=== PATIENT | female | born 1940 | race Caucasian/White ===

== ENCOUNTER 2017-03-18 07:50 | Inpatient (IN) ==
[2017-03-18] MEDS ORDERED: IOPAMIDOL 100 ML BOTTLE IV ONE (07:51)
[2017-03-18] MEDS ORDERED: 0.9 % SODIUM CHLORIDE 1,000 ML IV SCH (08:00)
--- NOTE | 2017-03-18 08:01 | Emergency Department Note ---
Weakness HPI - General Chief complaint: Weakness Stated complaint: global weakness Time Seen by Provider: 03/18/17 07:56 Source: patient, family, EMS Mode of arrival: EMS Limitations: altered mental status, physical limitation - History of Present Illness HPI Narrative: 76-year-old female comes in after 3 day history of difficulty using her arms and legs. Her reports that she does not want to get out of her bed or stand. Denies fever nausea vomiting diarrhea shortness of breath. Last bowel movement was 2 nights ago. She is declined to take much oral intake since then. All this history is from her that she is not able to give me any meaningful history or be entirely cooperative for physical exam-he says she has significant underlying dementia Did not get a flu shot this year - Related Data Home Medications Medication Instructions Recorded Confirmed aspirin 81 mg tablet,delayed 81 mg PO QDAY tab 11/05/14 07/11/16 release Previous Rx's Medication Instructions Recorded albuterol sulfate HFA 90 180 mcg INHALATION TID #8.5 g 02/02/15 mcg/actuation aerosol inhaler levothyroxine 50 mcg tablet 50 mcg PO QDAY #90 tab 01/02/17 Allergies Allergy/AdvReac Type Severity Reaction Status Date / Time codeine Allergy Intermediate Hallucinati Verified 03/18/17 07:56 ng Review of Systems Limitations: ROS unobtainable due to patients medical condition Past Medical History - Past Medical History Source: old records reviewed, obtained from family Medical history: Reports: COPD, dementia, hypertension, osteoporosis, thyroid disease, other (Small bowel obstruction, peripheral vascular disease) Surgical history ED: Reports: appendectomy - Social History smoking status: Current every day smoker Physical Exam Cachectic, chronically ill-appearing female no acute distress. In fact she is smiling while lying on the bed looking around. Normocephalic atraumatic. Conjunctive bilaterally injected with some erythema on the blepharal bilaterally , some viscous drainage bilateral eyes more consistent with irritation than a true conjunctivitis. No nasal congestion or discharge. Oropharynx pink and moist. Bottom two incisors missing. Neck is supple without lymphadenopathy. Heart is regular rate and rhythm no murmurs appreciated. Lungs are clear to auscultation bilaterally without wheezes rales rhonchi or respiratory distress. Barrel chest. Abdomen is soft diffusely tender but flat. +2 radial pulse. She is alert and looking around but I am unable to assess her orientation secondary to cooperation and dementia. She will follow commands though an attempt to squeeze my fingers with both hands. She seems to have less control over her right hand and wrist although she can lift her right arm at the shoulder and elbow. She is able to wiggle all her toes. However she makes no attempt to move around or get up really only moving her neck and head. Her affect is euthymic and even inappropriately happy consistent with dementia Limitations: altered mental status, physical limitation Course Vital Signs Temperature 97.2 F 03/18/17 07:50 Pulse Rate 78 03/18/17 07:50 Blood Pressure 101/82 03/18/17 07:50 Pulse Oximetry (%) 95 03/18/17 07:50 Temperature 97.2 F 03/18/17 07:50 Pulse Rate 78 03/18/17 07:50 Blood Pressure 101/82 03/18/17 07:50 Pulse Oximetry (%) 95 03/18/17 07:50 Weakness - Lab Data Lab results reviewed: Yes I reviewed the patient's lab results. Result diagrams: 03/18/17 08:19 03/18/17 08:19 Urinalysis [id number] dipstick shows specific gravity 1.015 otherwise within normal limits - EKG Data EKG attestation: Yes I reviewed and interpreted this EKG. EKG results narrative: EKG shows a rate of 79 with atrial fibrillation versus artifact. She had trouble holding still for the EKG but best of multiple attempts looks like atrial fibrillation here. Incomplete right bundle branch blocks also seen low voltage throughout likely from lung disease. I do not see evidence of ischemia Disposition Pt seen by SAFETY AND SECURITY OFFICER/PA only: No Summary: Patient initially seen and worked up for altered mental status. Differential diagnosis is broad and includes worsening dementia versus stroke versus metabolic issues. Laboratory EKG and imaging are pending. I added on an x-ray of the abdomen because of her diffuse belly tenderness EKG showed atrial fibrillation low voltage signal. Urinalysis is normal Shift change came and patient will be checked out to Dr. del angel for further care and disposition-he will assume care Disposition: Still a Patient Condition: Fair Referrals: Claudy Mcgrath MD [Primary Care Provider] -
[2017-03-18] MEDS ORDERED: 0.9 % SODIUM CHLORIDE 1,000 ML IV ONE (08:17)
--- NOTE | 2017-03-18 09:09 | Cat Scan Report ---
CLINICAL INFORMATION: Global weakness COMPARISON: 09/10/2013 TECHNIQUE: Axial noncontrast-enhanced images through the brain. FINDINGS: No acute intracranial hemorrhage. No subdural hematoma. No subarachnoid hemorrhage. No epidural hematoma. No intra-axial hemorrhage. There is cerebral atrophy with enlarged ventricles and superficial subarachnoid spaces. There is extensive white matter abnormality in a predominantly periventricular distribution. Atrophy and white matter abnormality appears progressive. No new focal abnormalities. No localized mass effect. No midline shift. Brainstem is negative. Basilar cisterns are normal. No hyperdense middle cerebral artery sign. No calvarial fracture. No lytic lesion. Temporal bones are negative. IMPRESSION: 1. No acute intracranial hemorrhage. 2. Severe atrophy and white matter abnormality. Findings appear progressive since 2013 3. No new focal abnormality. Interpreted and Authenticated by: Aamir Hood 03/18/17
--- NOTE | 2017-03-18 09:11 | XRay Report ---
INDICATION: Altered mental status. Global weakness. TECHNIQUE: AP chest x-ray,semiupright portable COMPARISON: Previous chest x-rays dated 10/21/2012 and 08/22/2008 FINDINGS:There are left-sided rib fractures which are not acute but are new since 2013. No focal pulmonary parenchymal infiltrate or mass. No congestive heart failure. Size is within normal limits. No pleural fluid. No pneumothorax. Joann and mediastinum are negative IMPRESSION: 1. Nonacute left-sided rib fractures. These are new since most recent previous comparison examination dated 2012 2. No acute abnormality. Interpreted and Authenticated by: Aamir Hood 03/18/17
--- NOTE | 2017-03-18 09:13 | XRay Report ---
CLINICAL INFORMATION: Abdominal pain. Global weakness. TECHNIQUE: AP supine portable abdomen COMPARISON: None FINDINGS: Bowel gas pattern is nonspecific. There is gas and fecal material within the colon. There is some prominent gas-filled small bowel. Appearance is not consistent with mechanical small bowel obstruction. There is no pneumatosis. No biliary or portal venous gas. No pneumoperitoneum. There is atherosclerotic calcification of the abdominal aorta. There is old left pubic fractures. IMPRESSION: Nonspecific bowel gas pattern Interpreted and Authenticated by: Aamir Hood 03/18/17
[2017-03-18] MEDS: 0.9 % SODIUM CHLORIDE 1,000 ML IV SCH ×3 (09:16→16:10)
[2017-03-18 09:19] LABS: Basophils # (Auto) 0 K/mcL (0.0-0.3); Basophils % (Auto) 0.3 % (0.0-2.0); Eosinophils # (Auto) 0 K/mcL (0.0-0.7); Eosinophils % (Auto) 0.7 % (0.0-7.0); Granulocytes % (Auto) 71.9 % (38.0-78.0); Lymphocytes # (Auto) 1.2 K/mcL (1.5-4.8); Mean Corpuscular HGB Conc 34.8 g/dL (31.0-36.0); Mean Corpuscular Hemoglobin 35.4 pg (26.0-34.0); Monocytes # (Auto) 0.6 K/mcL (0.1-0.9); Monocytes % (Auto) 9.1 % (1.0-12.0); Platelet Count 198 K/mcL (140-440); RBC 3.55 M/mcL (4.00-5.20); Red Cell Distribution Width 13.6 % (11.5-14.5)
[2017-03-18 09:47] LABS: Appearance,Urine HAZY; Bilirubin,Urine NEG (NEG); Color,Urine YELLOW; Glucose,Urine (UA) NEGATIVE (NEG); Leukocyte Esterase,Urine NEG /uL (NEG); Nitrate,Urine NEG (NEG); Protein,Urine NEG (NEG); Specific Gravity,Urine 1.017 (1.000-1.035); Urine Blood NEG mg/dL (<0.03)
[2017-03-18 09:52] LABS: ALT/SGPT 22 U/l (0-40); Albumin/Globulin Ratio 1.2 (1.0-2.3); Alkaline Phosphatase 53 U/L (39-117); Blood Urea Nitrogen 28 mg/dl (8-23)
--- NOTE | 2017-03-18 11:44 | Cat Scan Report ---
CLINICAL INFORMATION: Abdominal pain COMPARISON: 07/31/2013 TECHNIQUE: Axial images were obtained through the abdomen and pelvis. Sagittally and coronally reformatted images. 80 mL nonionic contrast material injected intravenously. Oral contrast material was not administered FINDINGS: Lung bases are negative. No parenchymal infiltrate or mass. No pleural fluid. There is pericardial fluid. This measures approximately 7 to 8 mm maximally. This is a new finding since 07/31/2013. There is a small hiatal hernia. Liver is negative. Normal homogeneous enhancement. No focal mass. Liver contour appears smooth without definite evidence for cirrhosis. Gallbladder is present. No dilated bile ducts. Spleen is negative. No splenomegaly. Normal enhancement of splenic and portal veins. Negative pancreas. No pancreatic mass. No peripancreatic abnormality. Adrenal glands are somewhat prominent bilaterally without discrete mass Kidneys are negative. No solid or cystic mass. No hydronephrosis. No hydroureter. There is dense calcification of the abdominal aorta. No abdominal aortic aneurysm. Uterus is present and atrophic. No adnexal mass. There is [id number] ascites. There is free pelvic fluid. There is minimal perihepatic fluid. No detectable enhancing peritoneal masses. No evidence for ovarian carcinoma. Etiology of this ascitic fluid is not certain. This was not present previously. There is no intra-abdominal abscess. No pneumoperitoneum. No biliary or portal venous gas. There is gas and fecal material within the colon. No diverticulitis. No appendicitis. Small bowel is mildly prominent with intraluminal fluid. There is mild generalized enhancement of small bowel wall. Enteritis is possible. There is no well-defined transition point or evidence for mechanical small bowel obstruction. No retroperitoneal or mesenteric lymphadenopathy. No abdominal wall hernia. No inguinal hernia. Multilevel degenerative disc disease in the lumbar spine. No compression deformities. No sacral fracture. There are chronic left pubic fractures, new since 2013 IMPRESSION: 1. Small to moderate ascites, etiology not certain. This is a new finding since 2013. No adnexal mass. No enhancing peritoneal mass. 2. Somewhat prominent fluid-filled small bowel. Enteritis is possible. Appearance is not consistent with acute mechanical small bowel obstruction. Interpreted and Authenticated by: Aamir Hood 03/18/17
[2017-03-18] MEDS ORDERED: LEVOTHYROXINE 50 MCG TABLET PO ONE (12:45)
--- NOTE | 2017-03-18 13:07 | Emergency Department Note ---
General Adult HPI - General Chief complaint: Weakness Stated complaint: global weakness Time Seen by Provider: 03/18/17 07:56 Source: patient, family, EMS Mode of arrival: EMS Limitations: altered mental status, physical limitation - Related Data Home Medications Medication Instructions Recorded Confirmed aspirin 81 mg tablet,delayed 81 mg PO QDAY tab 11/05/14 07/11/16 release Previous Rx's Medication Instructions Recorded albuterol sulfate HFA 90 180 mcg INHALATION TID #8.5 g 02/02/15 mcg/actuation aerosol inhaler levothyroxine 50 mcg tablet 50 mcg PO QDAY #90 tab 01/02/17 Allergies Allergy/AdvReac Type Severity Reaction Status Date / Time codeine Allergy Intermediate Hallucinati Verified 03/18/17 07:56 ng Past Medical History - Past Medical History Medical history: Reports: COPD, dementia, hypertension, osteoporosis, thyroid disease, other (Small bowel obstruction, peripheral vascular disease) Surgical history ED: Reports: appendectomy - Social History smoking status: Current every day smoker Physical Exam Limitations: altered mental status, physical limitation Course Vital Signs Temperature 97.2 F 03/18/17 07:50 Pulse Rate 78 03/18/17 07:50 Blood Pressure 101/82 03/18/17 07:50 Pulse Oximetry (%) 95 03/18/17 07:50 Temperature 97.2 F 03/18/17 07:50 Pulse Rate 80 03/18/17 12:46 Blood Pressure 111/69 03/18/17 12:46 Pulse Oximetry (%) 96 03/18/17 12:46 Medical Decision Making - [facility] Narrative Medical decision making narrative: This patient has not taken her Synthroid a month and her TSH was 87. Lab work done to remarkable sodium 129-130. CT scan is consistent with some enteritis. Patient will be admitted to the hospital by Dr. Lucas. - Lab Data Lab results reviewed: Yes I reviewed the patient's lab results. Result diagrams: 03/18/17 08:19 03/18/17 08:19 Lab Results 03/18/17 03/18/17 03/18/17 Range/Units 08:19 08:19 08:19 WBC 6.4 (4.5-11.0) K/mcL RBC 3.55 L (4.00-5.20) M/mcL Hgb 12.6 (12.0-15.0) g/dL Hct 36.2 (36.0-48.0) % POC Hct 36.0 (36.0-48.0) % MCV 102.0 H (80.0-100.0) fL MCH 35.4 H (26.0-34.0) pg MCHC 34.8 (31.0-36.0) g/dL RDW 13.6 (11.5-14.5) % Plt Count 198 (140-440) K/mcL MPV 8.2 (7.4-10.4) fL Gran % 71.9 (38.0-78.0) % Lymph % (Auto) 18.0 (15.5-49.0) % [place] % (Auto) 9.1 (1.0-12.0) % Eos % (Auto) 0.7 (0.0-7.0) % Baso % (Auto) 0.3 (0.0-2.0) % Gran # 4.6 (1.8-8.0) K/mcL Lymph # (Auto) 1.2 L (1.5-4.8) K/mcL [place] # (Auto) 0.6 (0.1-0.9) K/mcL Eos # (Auto) 0 (0.0-0.7) K/mcL Baso # (Auto) 0 (0.0-0.3) K/mcL POC PT 14.7 H (11.9-14.5) sec POC INR 1.2 (0.9-1.2) APTT 34 (20-37) sec VBG Lactic Acid (0.5-2.2) mmol/L POC Sodium 130 L (133-145) mmol/L Sodium 129 L (133-145) mmol/L POC Potassium 3.7 (3.3-5.1) mmol/L Potassium 3.9 (3.3-5.1) mmol/L POC Chloride 96 (96-108) mmol/L Chloride 93 L (96-108) mmol/L Carbon Dioxide 23 (22-30) mmol/L POC Total CO2 24 (22-30) mmol/L Anion Gap 13.0 (8-16) POC BUN 27 H (8-23) mg/dl BUN 28 H (8-23) mg/dl Creatinine 1.3 H (0.6-1.1) mg/dl POC Creatinine 1.2 H (0.6-1.1) mg/dl GFR Calculation 40 Glucose 87 (70-105) mg/dL POC Glucose 81 (70-105) mg/dL Calcium 8.0 L (8.6-10.4) mg/dl POC WB Ioniz Calcium 1.06 L (1.16-1.32) mmol/L Total Bilirubin 0.9 (0.0-1.0) mg/dL AST 35 (0-37) U/l ALT 22 (0-40) U/l Alkaline Phosphatase 53 (39-117) U/L Ammonia (11-51) umol/L Troponin T (0-0.03) ng/ml Total Protein 5.6 L (5.9-8.4) gm/dL Albumin 3.0 L (3.2-5.2) gm/dL Globulin 2.6 (2.2-3.7) gm/dL Albumin/Globulin Ratio 1.2 (1.0-2.3) TSH (0.27-5.01) uIU/ml Urine Color Urine Appearance Urine pH (5.0-9.0) Ur Specific [place] (1.000-1.035) Urine Protein (NEG) mg/dL Urine Glucose (UA) (NEG) mg/dL Urine Ketones (NEG) mg/dL Urine Occult Blood (<0.03) mg/dL Urine Nitrate (NEG) Urine Bilirubin (NEG) mg/dL Urine Urobilinogen (NEG) mg/dL Ur Leukocyte Esterase (NEG) /uL Ur Culture Indicated? 03/18/17 03/18/17 03/18/17 Range/Units 08:19 08:19 08:19 WBC (4.5-11.0) K/mcL RBC (4.00-5.20) M/mcL Hgb (12.0-15.0) g/dL Hct (36.0-48.0) % POC Hct (36.0-48.0) % MCV (80.0-100.0) fL MCH (26.0-34.0) pg MCHC (31.0-36.0) g/dL RDW (11.5-14.5) % Plt Count (140-440) K/mcL MPV (7.4-10.4) fL Gran % (38.0-78.0) % Lymph % (Auto) (15.5-49.0) % [place] % (Auto) (1.0-12.0) % Eos % (Auto) (0.0-7.0) % Baso % (Auto) (0.0-2.0) % Gran # (1.8-8.0) K/mcL Lymph # (Auto) (1.5-4.8) K/mcL [place] # (Auto) (0.1-0.9) K/mcL Eos # (Auto) (0.0-0.7) K/mcL Baso # (Auto) (0.0-0.3) K/mcL POC PT (11.9-14.5) sec POC INR (0.9-1.2) APTT (20-37) sec VBG Lactic Acid 2.3 H (0.5-2.2) mmol/L POC Sodium (133-145) mmol/L Sodium (133-145) mmol/L POC Potassium (3.3-5.1) mmol/L Potassium (3.3-5.1) mmol/L POC Chloride (96-108) mmol/L Chloride (96-108) mmol/L Carbon Dioxide (22-30) mmol/L POC Total CO2 (22-30) mmol/L Anion Gap (8-16) POC BUN (8-23) mg/dl BUN (8-23) mg/dl Creatinine (0.6-1.1) mg/dl POC Creatinine (0.6-1.1) mg/dl GFR Calculation Glucose (70-105) mg/dL POC Glucose (70-105) mg/dL Calcium (8.6-10.4) mg/dl POC WB Ioniz Calcium (1.16-1.32) mmol/L Total Bilirubin (0.0-1.0) mg/dL AST (0-37) U/l ALT (0-40) U/l Alkaline Phosphatase (39-117) U/L Ammonia 10 L (11-51) umol/L Troponin T 0.01 (0-0.03) ng/ml Total Protein (5.9-8.4) gm/dL Albumin (3.2-5.2) gm/dL Globulin (2.2-3.7) gm/dL Albumin/Globulin Ratio (1.0-2.3) TSH (0.27-5.01) uIU/ml Urine Color Urine Appearance Urine pH (5.0-9.0) Ur Specific [place] (1.000-1.035) Urine Protein (NEG) mg/dL Urine Glucose (UA) (NEG) mg/dL Urine Ketones (NEG) mg/dL Urine Occult Blood (<0.03) mg/dL Urine Nitrate (NEG) Urine Bilirubin (NEG) mg/dL Urine Urobilinogen (NEG) mg/dL Ur Leukocyte Esterase (NEG) /uL Ur Culture Indicated? 03/18/17 03/18/17 Range/Units 08:19 08:40 WBC (4.5-11.0) K/mcL RBC (4.00-5.20) M/mcL Hgb (12.0-15.0) g/dL Hct (36.0-48.0) % POC Hct (36.0-48.0) % MCV (80.0-100.0) fL MCH (26.0-34.0) pg MCHC (31.0-36.0) g/dL RDW (11.5-14.5) % Plt Count (140-440) K/mcL MPV (7.4-10.4) fL Gran % (38.0-78.0) % Lymph % (Auto) (15.5-49.0) % [place] % (Auto) (1.0-12.0) % Eos % (Auto) (0.0-7.0) % Baso % (Auto) (0.0-2.0) % Gran # (1.8-8.0) K/mcL Lymph # (Auto) (1.5-4.8) K/mcL [place] # (Auto) (0.1-0.9) K/mcL Eos # (Auto) (0.0-0.7) K/mcL Baso # (Auto) (0.0-0.3) K/mcL POC PT (11.9-14.5) sec POC INR (0.9-1.2) APTT (20-37) sec VBG Lactic Acid (0.5-2.2) mmol/L POC Sodium (133-145) mmol/L Sodium (133-145) mmol/L POC Potassium (3.3-5.1) mmol/L Potassium (3.3-5.1) mmol/L POC Chloride (96-108) mmol/L Chloride (96-108) mmol/L Carbon Dioxide (22-30) mmol/L POC Total CO2 (22-30) mmol/L Anion Gap (8-16) POC BUN (8-23) mg/dl BUN (8-23) mg/dl Creatinine (0.6-1.1) mg/dl POC Creatinine (0.6-1.1) mg/dl GFR Calculation Glucose (70-105) mg/dL POC Glucose (70-105) mg/dL Calcium (8.6-10.4) mg/dl POC WB Ioniz Calcium (1.16-1.32) mmol/L Total Bilirubin (0.0-1.0) mg/dL AST (0-37) U/l ALT (0-40) U/l Alkaline Phosphatase (39-117) U/L Ammonia (11-51) umol/L Troponin T (0-0.03) ng/ml Total Protein (5.9-8.4) gm/dL Albumin (3.2-5.2) gm/dL Globulin (2.2-3.7) gm/dL Albumin/Globulin Ratio (1.0-2.3) TSH 87.56 H (0.27-5.01) uIU/ml Urine Color Yellow Urine Appearance Hazy Urine pH 5.0 (5.0-9.0) Ur Specific [place] 1.017 (1.000-1.035) Urine Protein Neg (NEG) mg/dL Urine Glucose (UA) Negative (NEG) mg/dL Urine Ketones Neg (NEG) mg/dL Urine Occult Blood Neg (<0.03) mg/dL Urine Nitrate Neg (NEG) Urine Bilirubin Neg (NEG) mg/dL Urine Urobilinogen 2.0 A (NEG) mg/dL Ur Leukocyte Esterase Neg (NEG) /uL Ur Culture Indicated? No - Radiology Data Radiology results reviewed: Yes I reviewed the patient's radiology results. Disposition Pt seen by SUPERVISOR COLOR MAKING/PA only: No Clinical Impression: Dehydration, Hyponatremia, Hypothyroidism, Dementia Disposition: Xfer As Inpt ([facility]) Condition: Fair Referrals: Claudy Mcgrath MD [Primary Care Provider] - Time of Disposition: 13:07
[2017-03-18 13:48] LABS: Free T4 (Free Thyroxine) < 0.10 ng/dl (0.7-1.7)
[2017-03-18] MEDS ORDERED: HYDROCORTISONE SOD SUCC 100 MG VIAL IV SCH (14:30)
--- NOTE | 2017-03-18 14:46 | Internal Med History&Physical ---
Medical - H&P: HPI Patient information: Note initiated : 03/18/17 at 2:38 pm Service Date, if different from initiated Date: [] Patient: Genny Wright 76 y/o F admitted on for global weakness. Chief Complaint: [] History of present illness: Ms. Wright is a 76 year old Female with severe dementia, not on any dementia meds presents to the ER today brought in by her because she is too weak and has had poor oral intake. The patient has h/o hypothyroidism, she stopped taking her medication approximately 1 month ago, she does have a history of non compliance in the past , and her TSH has been all over the place. She lives with her who takes care of her. He notes she sometimes is stubborn and difficult to convince to take pills. The patient over the last 1 week has been progressively weak, tired and fatigued, not getting out of bed. She has had decline in her po intake, last meal was last sunday. She was therefore brought in the hospital for further evaluation. She denies any complaints in the ER. Her notes no other symptoms apparent except as listed above. She does have intermittent headaches, intermittent appetitie as per her but could not elaborate much. AT baseline she is able feed self, go for walks and seems to be reasonably independent, and relies on for memory issues. The patient in ther ER did not have any signs of infectino, her TSH Was high, her CT Head showed cerebral atrophy, CT Abdomen had possible enteritis, noted pericardial effusion and some ascites. The patient was admitted to the hospital for further management. The patient is DNR and does not want any artificial life supporting treatment. ROS unobtainable: due to mental status Medical - H&P: PMH Medical history: Medical History Dehydration (Acute) Onychomycosis (Chronic) Dementia (Chronic) Weakness (Chronic) Tobacco abuse (Chronic) Small bowel obstruction (Resolved) PVD (peripheral vascular disease) (Chronic) Osteoporosis (Chronic) Macrocytosis (Chronic) Low back pain (Resolved) Abnormal LFTs (Chronic) Lytic bone lesion of hip (Chronic) Hypothyroidism (Chronic) Hyponatremia (Chronic) Hypokalemia (Chronic) Hypertension, essential (Chronic) Hyperglycemia (Chronic) Goiter (Chronic) GERD (gastroesophageal reflux disease) (Chronic) Fracture of sacrum and coccyx (Resolved) Depression (Chronic) Degeneration, intervertebral disc, lumbar (Chronic) Compression fracture of vertebra (Resolved) COPD (chronic obstructive pulmonary disease) (Chronic) Anxiety disorder (Chronic) Surgical history: Past Surgical History History of esophagogastroduodenoscopy (Resolved) History of appendectomy (Resolved) Pertinent family history: Family History Sister Atherosclerosis Ruptured abdominal aortic aneurysm Medical - H&P: Meds Home Medications Medication Instructions Recorded Confirmed Type aspirin 81 mg tablet,delayed 81 mg PO QDAY tab 11/05/14 07/11/16 History release albuterol sulfate HFA 90 180 mcg INHALATION TID #8.5 g 02/02/15 07/11/16 Rx mcg/actuation aerosol inhaler levothyroxine 50 mcg tablet 50 mcg PO QDAY #90 tab 01/02/17 Rx Allergies Allergy/AdvReac Type Severity Reaction Status Date / Time codeine AdvReac Intermediate Hallucinati Verified 03/18/17 14:24 ng Medical - H&P: Exam - Constitutional Vitals: Temp Pulse Resp BP Pulse Ox 97.2 F 82 21 109/91 95 03/18/17 07:50 03/18/17 14:31 03/18/17 14:08 03/18/17 14:31 03/18/17 14:31 Exam: GENERAL: The patient is a well-developed, in no apparent distress. Is alert and oriented x1. forgetful with oral dyskinesia VITAL SIGNS: Reviewed and as noted elsewhere. HEENT: Head is normocephalic and atraumatic. Extraocular muscles are intact. Pupils are equal, round, and reactive to light. Nares appeared normal. Mouth appears any without lesions. Mucous membranes are dry NECK: Normal to inspection, Supple, No lymphadenopathy or thyromegaly. LUNGS: Air entry equal on both sides, no wheezing, crackles or rhonchi noted. No accessory muscles of respiration HEART: Regular rate and rhythm normal, S1 and S2 heard, no Gallop, S3 or Rub Noted, No Gross murmur heard. ABDOMEN: Soft, nontender, and nondistended. Flank fullness noted Hypoactive Positive bowel sounds. No hepatosplenomegaly was noted. EXTREMITIES: No cyanosis, clubbing, rash, lesions or edema. NEUROLOGIC: Cranial nerves II through XII are grossly intact. Motor and Sensory System Grossly Intact, deep reflexs are dimisihed at ankle/ knees + PSYCHIATRIC:flat affect SKIN: No ulceration or wounds noted, No jaundice, No rash noted. Medical - H&P: Reslt - Labs CBC & Chem 7: 03/18/17 08:19 03/18/17 08:19 Labs: Short CBC 03/18/17 Range/Units 08:19 WBC 6.4 (4.5-11.0) K/mcL Hgb 12.6 (12.0-15.0) g/dL Hct 36.2 (36.0-48.0) % Plt Count 198 (140-440) K/mcL BMP 03/18/17 08:19 Sodium 129 L Potassium 3.9 Chloride 93 L Carbon Dioxide 23 BUN 28 H Creatinine 1.3 H Glucose 87 Calcium 8.0 L Cardiac Enzymes 03/18/17 Range/Units 08:19 Troponin T 0.01 (0-0.03) ng/ml Liver Function 03/18/17 Range/Units 08:19 Total Bilirubin 0.9 (0.0-1.0) mg/dL AST 35 (0-37) U/l ALT 22 (0-40) U/l Alkaline Phosphatase 53 (39-117) U/L Albumin 3.0 L (3.2-5.2) gm/dL Urine 03/18/17 Range/Units 08:40 Urine Color Yellow Urine Appearance Hazy Urine pH 5.0 (5.0-9.0) Ur Specific [place] 1.017 (1.000-1.035) Urine Protein Neg (NEG) mg/dL Urine Glucose (UA) Negative (NEG) mg/dL Medical - H&P: A/P - Narrative A/P Narrative: A/P Moderate to Severe dementia: CT head shows cerebral atrophy, not on any meds at this time, patient if does not recover from thyroid issues should be considered for palliative care, agrees with same. Hypothyroidism, severe- High tsh due to non compliance. AT lot of patients symptoms of weakness, fatigue, poor intake, GI transit issues, pericardiac effusion, ascites, could be attributed to this. Check t3,t4 and cortisol levels. Oral Synthroid given in ER, not sure if will get absorbed well. Give 200mcg of IV levothyroxine. and start on IV levothyroxine 50mcg daily. Check t4 tsh daily to monitor progress. start on IV cortisol 100q8 for now. Wean off rapidly if no e/o cortisol deficiency. Given that patient mental status is not significantly changed, and that she is DNR and strongly does not wish for resucitation will monitor on the floor. Failure to thrive: Poor oral intake, poor activity level, likely from low thyroid, but worsening dementia is possible. If patient does not improve with treatment with fluids and correcting thyroid issues, palliative care should be considered. Hyponatremia: Due to poor oral intake, hypothyroid state, Gentle hydration for now. Acute kidney injury: Due to poor oral int thais, IV Fluids for now. DVThep sq NPO diet till assessed by ST DNR status. Social History - Social History household members: spouse housing: house lives independently: Yes marital status: education level: high school occupational status: retired - Tobacco smoking status: Current every day smoker - Alcohol alcohol intake frequency: holiday/special occasion only
[2017-03-18] MEDS ORDERED: ACETAMINOPHEN 325 MG TABLET PO PRN (15:25)
[2017-03-18] MEDS ORDERED: IPRATROPIUM/ALBUTEROL 3 ML AMPUL.NEB NEB PRN (15:25)
[2017-03-18] MEDS ORDERED: ONDANSETRON 4 MG/2 ML VIAL IV PRN (15:25)
[2017-03-18] MEDS ORDERED: NALOXONE HCL 0.4 MG/ML VIAL IV PRN (15:25)
[2017-03-18] MEDS ORDERED: LEVOTHYROXINE 100 MCG VIAL IV ONE (15:30)
[2017-03-18] MEDS: HEPARIN 5,000 UNIT/ML VIAL SQ SCH (19:53)
[2017-03-18] MEDS: HYDROCORTISONE SOD SUCC 100 MG VIAL IV SCH (22:35)
[2017-03-18] MEDS: 0.9 % SODIUM CHLORIDE 10 ML SYRINGE IV SCH (22:38)
[2017-03-19] MEDS: 0.9 % SODIUM CHLORIDE 1,000 ML IV SCH (03:41)
[2017-03-19] MEDS: 0.9 % SODIUM CHLORIDE 10 ML SYRINGE IV SCH ×2 (05:26→14:46)
[2017-03-19] MEDS: HYDROCORTISONE SOD SUCC 100 MG VIAL IV SCH (05:35)
[2017-03-19 05:36] LABS: Basophils # (Auto) 0 K/mcL (0.0-0.3); Basophils % (Auto) 0 % (0.0-2.0); Eosinophils # (Auto) 0 K/mcL (0.0-0.7); Eosinophils % (Auto) 0.1 % (0.0-7.0); Granulocytes % (Auto) 81.1 % (38.0-78.0); Lymphocytes # (Auto) 0.7 K/mcL (1.5-4.8); Lymphocytes % (Auto) 13.3 % (15.5-49.0); Mean Cell Volume 102.3 fL (80.0-100.0); Mean Corpuscular HGB Conc 34.4 g/dL (31.0-36.0); Mean Corpuscular Hemoglobin 35.2 pg (26.0-34.0); Monocytes # (Auto) 0.3 K/mcL (0.1-0.9); Monocytes % (Auto) 5.5 % (1.0-12.0); Platelet Count 184 K/mcL (140-440); Red Cell Distribution Width 14.3 % (11.5-14.5)
[2017-03-19 06:08] LABS: ALT/SGPT 24 U/l (0-40); Albumin 3.3 gm/dL (3.2-5.2); Albumin/Globulin Ratio 1.2 (1.0-2.3); Alkaline Phosphatase 52 U/L (39-117); Bilirubin,Direct 0.4 mg/dL (0.0-0.3); Blood Urea Nitrogen 19 mg/dl (8-23); Gamma Glutamyl Transpeptidase 18 U/L (5-36); Magnesium 1.6 mg/dL (1.6-2.5); T4 (Thyroxine) 4.9 ug/dl (5.0-12.0); Uric Acid 5.9 mg/dL (2.5-8.0)
[2017-03-19] MEDS: LEVOTHYROXINE 100 MCG VIAL IV SCH (07:16)
[2017-03-19] MEDS ORDERED: LEVOTHYROXINE 100 MCG VIAL IV SCH (07:30)
[2017-03-19] MEDS ORDERED: FLU VACC QS2017-18 36MOS UP/PF 60 MCG/0.5 ML SYRINGE IM ONE (10:00)
[2017-03-19] MEDS ORDERED: PNEUMOCOCCAL 23-VAL P-SAC VAC 0.5 ML VIAL IM ONE (10:00)
[2017-03-19] MEDS: ASPIRIN 81 MG TAB.CHEW PO SCH (10:23)
[2017-03-19] MEDS: HEPARIN 5,000 UNIT/ML VIAL SQ SCH ×2 (10:24→21:44)
[2017-03-19] MEDS ORDERED: POTASSIUM CHLORIDE 40 MEQ in DEXTROSE 5% IN WATER 500 ML IV ONE (10:44)
--- NOTE | 2017-03-19 10:48 | Internal Med Progress Note ---
Medical - PN: Subj Patient information: Note initiated : 03/19/17 at 10:45 am Service Date, if different from initiated Date: [] Patient: Genny Wright 76 y/o F admitted on 03/18/17 for Global Weakness/ Hyponatremia, Dementia. Chief Complaint: [] Interval history: Ms. Wright is a 76 year old Female with severe dementia, not on any dementia meds presents to the ER today brought in by her because she is too weak and has had poor oral intake. The patient has h/o hypothyroidism, she stopped taking her medication approximately 1 month ago, she does have a history of non compliance in the past , and her TSH has been all over the place. She lives with her who takes care of her. He notes she sometimes is stubborn and difficult to convince to take pills. The patient over the last 1 week has been progressively weak, tired and fatigued, not getting out of bed. She has had decline in her po intake, last meal was last sunday. She was therefore brought in the hospital for further evaluation. She denies any complaints in the ER. Her notes no other symptoms apparent except as listed above. She does have intermittent headaches, intermittent appetitie as per her but could not elaborate much. AT baseline she is able feed self, go for walks and seems to be reasonably independent, and relies on for memory issues. The patient in ther ER did not have any signs of infectino, her TSH Was high, her CT Head showed cerebral atrophy, CT Abdomen had possible enteritis, noted pericardial effusion and some ascites. The patient was admitted to the hospital for further management. The patient is DNR and does not want any artificial life supporting treatment. Mar 19 Patient seen examined no acute overnight issues tsh is better, t4 better on iv t4 for now we do have t3, but not IV, will start with oral t3 5mcg today and monitor response pt denies any complaints but clearly has no clue, she noted that she had breakfast this AM, when we have her NPO. Patients does not believe this is her baseline mental status. labs show improvement in sodium. Pertinent ROS: uanble to get meaning ful ros but she denies all symtoms Denies headache, dizziness Denies chest pain, palpitations Denies cough or shortness of breath Denies abdominal pain, nausea or vomiting. - Constitutional Vitals: Vital Signs Temp Pulse Resp BP Pulse Ox 97.6 F 74 18 108/65 92 03/19/17 06:27 03/19/17 06:27 03/19/17 06:27 03/19/17 06:27 03/19/17 07:35 Period Temp Pulse Resp BP Sys/Jacome Pulse Ox Last 24 Hr 97.2 F-98.8 F 74-88 16-24 90-169/45-148 92-98 Intake and Output 03/18/17 03/19/17 03/19/17 21:59 05:59 13:59 Intake Total 1000 / 1000 967 / 967 Output Total Balance 1000 / 1000 966 / 966 Weight 101 lb 8 oz Intake & Output: Intake & Output 03/18/17 03/19/17 03/19/17 21:59 05:59 13:59 Intake Total 1000 / 1000 967 / 967 Output Total Balance 1000 / 1000 966 / 966 Weight 101 lb 8 oz Intake: IV 1000 / 1000 967 / 967 Sodium Chloride 0.9% 1,000 ml @ 1000 / 1000 967 / 967 84 mls/hr IV .[id number] [facility] Rx#: [id number] Oral 0 / 0 Output: # of times incontinent of urine Exam: Constitutional; Afebrile, cooperative, alert, not in distress. Eyes- No icterus, , No periorbital swelling Ears- Ext ear normal, hearing normal to conversation. Neck- Midline trachea, supple Respiratory system: Air Entry equal on both sides, No crackles or wheezing, no rhonchi. CVS- Rate rhythm regular, S1,S2 heard, no gallop, no rub. Abdomen- Soft nontender abdomen, no organomegaly, no tenderness, no guarding or rigidity, [employer]- AOOx1, moving all extremities, no gross focal deficit noted. Medical - PN: Obj Da - Labs CBC & Chem 7: 03/19/17 04:11 03/19/17 04:11 Labs: Abnormal Lab Results 03/19/17 03/19/17 03/19/17 04:11 04:11 04:11 RBC 3.40 L Hgb 11.9 L Hct 34.7 L MCV 102.3 H MCH 35.2 H Gran % 81.1 H Lymph % (Auto) 13.3 L Lymph # (Auto) 0.7 L POC PT VBG Lactic Acid POC Sodium Sodium Potassium 3.2 L Chloride Carbon Dioxide 21 L POC BUN BUN Creatinine POC Creatinine Calcium 7.8 L POC WB Ioniz Calcium Phosphorus 2.6 L Direct Bilirubin 0.4 H AST 40 H Ammonia Lactate Dehydrogenase 254 H Total Protein Albumin TSH 33.45 H Free T4 Thyroxine (T4) 4.9 L Free T3 pg/mL Urine Urobilinogen 03/18/17 03/18/17 03/18/17 08:40 08:19 08:19 RBC Hgb Hct MCV MCH Gran % Lymph % (Auto) Lymph # (Auto) POC PT VBG Lactic Acid POC Sodium Sodium Potassium Chloride Carbon Dioxide POC BUN BUN Creatinine POC Creatinine Calcium POC WB Ioniz Calcium Phosphorus Direct Bilirubin AST Ammonia Lactate Dehydrogenase Total Protein Albumin TSH 87.56 H Free T4 < 0.10 L Thyroxine (T4) Free T3 pg/mL 0.4 L Urine Urobilinogen 2.0 A 03/18/17 03/18/17 03/18/17 08:19 08:19 08:19 RBC Hgb Hct MCV MCH Gran % Lymph % (Auto) Lymph # (Auto) POC PT VBG Lactic Acid 2.3 H POC Sodium 130 L Sodium 129 L Potassium Chloride 93 L Carbon Dioxide POC BUN 27 H BUN 28 H Creatinine 1.3 H POC Creatinine 1.2 H Calcium 8.0 L POC WB Ioniz Calcium 1.06 L Phosphorus Direct Bilirubin AST Ammonia 10 L Lactate Dehydrogenase Total Protein 5.6 L Albumin 3.0 L TSH Free T4 Thyroxine (T4) Free T3 pg/mL Urine Urobilinogen 03/18/17 03/18/17 08:19 08:19 RBC 3.55 L Hgb Hct MCV 102.0 H MCH 35.4 H Gran % Lymph % (Auto) Lymph # (Auto) 1.2 L POC PT 14.7 H VBG Lactic Acid POC Sodium Sodium Potassium Chloride Carbon Dioxide POC BUN BUN Creatinine POC Creatinine Calcium POC WB Ioniz Calcium Phosphorus Direct Bilirubin AST Ammonia Lactate Dehydrogenase Total Protein Albumin TSH Free T4 Thyroxine (T4) Free T3 pg/mL Urine Urobilinogen Meds: Medications Acetaminophen (Tylenol) 650 mg PO Q6HP PRN PRN Reason: PAIN/FEVER > 101 Albuterol/Ipratropium (Duoneb) 3 ml NEB Q4HRT PRN PRN Reason: Shortness Of Breath Or Wheezing Last Admin: 03/19/17 03:41 Dose: 3 ml Aspirin (Aspirin) 81 mg PO DAILY [facility] Last Admin: 03/19/17 10:23 Dose: 81 mg Heparin Sodium (Porcine) (Heparin) 5,000 unit SQ Q12 [facility] Last Admin: 03/19/17 10:24 Dose: 5,000 unit Sodium Chloride (Sodium Chloride 0.9%) 1,000 mls @ 84 mls/hr IV .[id number] [facility] Stop: 03/19/17 15:13 Last Admin: 03/19/17 03:41 Dose: 84 mls/hr Potassium Chloride 40 meq/ (Dextrose) 520 mls @ 130 mls/hr IV ONCE ONE Stop: 03/19/17 14:43 Levothyroxine Sodium (Synthroid) 50 mcg IV QAMAC [facility] Last Admin: 03/19/17 07:16 Dose: 50 mcg Liothyronine Sodium (Cytomel) 5 mcg PO DAILY [facility] Morphine Sulfate (Morphine) 2 mg IV Q4HP PRN PRN Reason: Pain Naloxone HCl (Narcan) 0.1 mg IV Q2MIN PRN PRN Reason: Opiate Reversal Ondansetron HCl (Zofran) 4 mg IV Q6HP PRN PRN Reason: Nausea And Vomiting Sodium Chloride (Saline Flush) 10 ml IV Q8 [facility] Last Admin: 03/19/17 05:26 Dose: Not Given Medical - PN: A/P - Time Spent With Patient Total time spent is greater than 50% in coordination of care (as documented) at patient's floor/unit and/or counseling patient: - Narrative A/P Narrative: A/P Moderate to Severe dementia: CT head shows cerebral atrophy, not on any meds at this time, patient if does not recover from thyroid issues should be considered for palliative care, agrees with same. Hypothyroidism, severe- High tsh due to non compliance. given pericardial effusion, as well as ascitis and significant worsening of dementia, I am treating this aggresively. IV t4, will start on po t3 today check daily labs to ensure that we do not over treat. TSH is much better today, Switch from iv to oral t4, once tsh and t4 levels are reasonable. likely in 1-2 days. Failure to thrive: Poor oral intake, poor activity level, likely from low thyroid, but worsening dementia is possible. If patient does not improve with treatment with fluids and correcting thyroid issues, palliative care should be considered. ST eval pending, resume oral diet as per them. Hyponatremia: Due to poor oral intake, hypothyroid state, chr low as per PCP, patient Na is better today, monitor Acute kidney injury: resolved. DVThep sq NPO diet till assessed by ST DNR status. OT/PT eval Medical - PN: Qual - Stroke Symptom Onset Unknown: No - VTE Deep Vein Thrombosis/Pulmonary Embolism Present on Admission: No
[2017-03-19] MEDS: LIOTHYRONINE 5 MCG TABLET PO SCH (12:18)
[2017-03-19] MEDS: PANTOPRAZOLE 40 MG VIAL IV SCH (12:18)
[2017-03-20] MEDS: 0.9 % SODIUM CHLORIDE 10 ML SYRINGE IV SCH ×4 (00:53→21:45)
[2017-03-20 06:17] LABS: ALT/SGPT 24 U/l (0-40); Albumin 3.4 gm/dL (3.2-5.2); Albumin/Globulin Ratio 1.4 (1.0-2.3); Alkaline Phosphatase 48 U/L (39-117); Bilirubin,Direct 0.4 mg/dL (0.0-0.3); Blood Urea Nitrogen 13 mg/dl (8-23); Gamma Glutamyl Transpeptidase 19 U/L (5-36); Magnesium 1.6 mg/dL (1.6-2.5); Uric Acid 5.5 mg/dL (2.5-8.0)
[2017-03-20 06:19] LABS: T4 (Thyroxine) 3.8 ug/dl (5.0-12.0)
[2017-03-20 07:00] LABS: Basophils # (Auto) 0 K/mcL (0.0-0.3); Basophils % (Auto) 0.1 % (0.0-2.0); Eosinophils # (Auto) 0 K/mcL (0.0-0.7); Granulocytes % (Auto) 63.9 % (38.0-78.0); Lymphocytes # (Auto) 1.3 K/mcL (1.5-4.8); Mean Cell Volume 102.4 fL (80.0-100.0); Mean Corpuscular HGB Conc 34.2 g/dL (31.0-36.0); Monocytes # (Auto) 0.2 K/mcL (0.1-0.9); Platelet Count 198 K/mcL (140-440); RBC 3.31 M/mcL (4.00-5.20); Red Cell Distribution Width 13.6 % (11.5-14.5)
[2017-03-20] MEDS: LEVOTHYROXINE 100 MCG VIAL IV SCH (07:45)
[2017-03-20] MEDS: PANTOPRAZOLE 40 MG VIAL IV SCH (07:51)
[2017-03-20] MEDS ORDERED: MAGNESIUM SULFATE 32.48 MEQ in DEXTROSE 5% IN WATER 100 ML IV ONE (08:28)
[2017-03-20] MEDS: IPRATROPIUM/ALBUTEROL 3 ML AMPUL.NEB NEB SCH ×5 (08:32→22:58)
[2017-03-20] MEDS ORDERED: POTASSIUM CHLORIDE 40 MEQ in DEXTROSE 5% IN WATER 500 ML IV ONE (09:00)
[2017-03-20] MEDS ORDERED: AZITHROMYCIN 250 MG TABLET PO ONE (09:03)
--- NOTE | 2017-03-20 09:09 | Internal Med Progress Note ---
Medical - PN: Subj Patient information: Note initiated : 03/20/17 at 9:07 am Service Date, if different from initiated Date: [] Patient: Genny Wright 76 y/o F admitted on 03/18/17 for Global Weakness/ Hyponatremia, Dementia. Chief Complaint: [] Interval history: Ms. Wright is a 76 year old Female with severe dementia, not on any dementia meds presents to the ER today brought in by her because she is too weak and has had poor oral intake. The patient has h/o hypothyroidism, she stopped taking her medication approximately 1 month ago, she does have a history of non compliance in the past , and her TSH has been all over the place. She lives with her who takes care of her. He notes she sometimes is stubborn and difficult to convince to take pills. The patient over the last 1 week has been progressively weak, tired and fatigued, not getting out of bed. She has had decline in her po intake, last meal was last sunday. She was therefore brought in the hospital for further evaluation. She denies any complaints in the ER. Her notes no other symptoms apparent except as listed above. She does have intermittent headaches, intermittent appetitie as per her but could not elaborate much. AT baseline she is able feed self, go for walks and seems to be reasonably independent, and relies on for memory issues. The patient in ther ER did not have any signs of infectino, her TSH Was high, her CT Head showed cerebral atrophy, CT Abdomen had possible enteritis, noted pericardial effusion and some ascites. The patient was admitted to the hospital for further management. The patient is DNR and does not want any artificial life supporting treatment. Mar 19 Patient seen examined no acute overnight issues tsh is better, t4 better on iv t4 for now we do have t3, but not IV, will start with oral t3 5mcg today and monitor response pt denies any complaints but clearly has no clue, she noted that she had breakfast this AM, when we have her NPO. Patients does not believe this is her baseline mental status. labs show improvement in sodium. Mar 20 patient seen examined, no acute overnight issues still very confused denies complaints labs show high tsh, and low t3 and t4, on replacement for both. Patient this AM was very sob on minimal activity, noted to be wheezing on exam started on steroids, duonebs and zithromax for copd, h/o smoking present. Pertinent ROS: Denies headache, dizziness Denies chest pain, palpitations Denies cough or shortness of breath Denies abdominal pain, nausea or vomiting. (but pt was obviously shhort of breath and wheezing, I dont think ros is reliable in her given her dementia) - Constitutional Vitals: Vital Signs Temp Pulse Resp BP Pulse Ox 97.8 F 80 18 129/78 93 03/20/17 08:00 03/20/17 08:42 03/20/17 08:42 03/20/17 08:00 03/20/17 08:00 Period Temp Pulse Resp BP Sys/Jacome Pulse Ox Last 24 Hr 97.1 F-98.2 F 70-83 16-20 119-156/75-85 93-97 Intake and Output 03/19/17 03/20/17 03/20/17 21:59 05:59 13:59 Output Total Balance - / -1 - - - Weight 108 lb Intake & Output: Intake & Output 03/19/17 03/20/17 03/20/17 21:59 05:59 13:59 Output Total Balance - - - Weight 108 lb Output: # of times incontinent of urine Other: # Voids 1 Exam: Constitutional; Afebrile, cooperative, alert, not in distress. Eyes- No icterus, , No periorbital swelling Ears- Ext ear normal, hearing moderately hard to conversation. Neck- Midline trachea, supple Respiratory system: Air Entry equal on both sides ,and diminised bilaterally, yonatan exp wheezing noted, no accesory muscle use, CVS- Rate rhythm regular, S1,S2 heard, no gallop, no rub. Abdomen- Soft nontender abdomen, no organomegaly, no tenderness, no guarding or rigidity, [employer]- AOOx1, moving all extremities, no gross focal deficit noted. Medical - PN: Obj Da - Labs CBC & Chem 7: 03/20/17 04:35 03/20/17 04:35 Labs: Abnormal Lab Results 03/20/17 03/20/17 03/20/17 04:35 04:35 04:35 WBC RBC Hgb Hct MCV MCH Gran % Lymph % (Auto) Lymph # (Auto) POC PT VBG Lactic Acid POC Sodium Sodium Potassium Chloride Carbon Dioxide POC BUN BUN Creatinine POC Creatinine Calcium 8.2 L POC WB Ioniz Calcium Phosphorus 1.3 L Total Bilirubin 1.1 H Direct Bilirubin 0.4 H AST 38 H Ammonia Lactate Dehydrogenase 285 H Total Protein Albumin TSH 52.21 H Free T4 Thyroxine (T4) 3.8 L Free T3 pg/mL 0.9 L Urine Urobilinogen 03/20/17 03/19/17 03/19/17 04:35 04:11 04:11 WBC 4.2 L RBC 3.31 L Hgb 11.6 L Hct 33.8 L MCV 102.4 H MCH 35.0 H Gran % Lymph % (Auto) Lymph # (Auto) 1.3 L POC PT VBG Lactic Acid POC Sodium Sodium Potassium 3.2 L Chloride Carbon Dioxide 21 L POC BUN BUN Creatinine POC Creatinine Calcium 7.8 L POC WB Ioniz Calcium Phosphorus 2.6 L Total Bilirubin Direct Bilirubin 0.4 H AST 40 H Ammonia Lactate Dehydrogenase 254 H Total Protein Albumin TSH 33.45 H Free T4 Thyroxine (T4) 4.9 L Free T3 pg/mL Urine Urobilinogen 03/19/17 03/18/17 03/18/17 04:11 08:40 08:19 WBC RBC 3.40 L Hgb 11.9 L Hct 34.7 L MCV 102.3 H MCH 35.2 H Gran % 81.1 H Lymph % (Auto) 13.3 L Lymph # (Auto) 0.7 L POC PT VBG Lactic Acid POC Sodium Sodium Potassium Chloride Carbon Dioxide POC BUN BUN Creatinine POC Creatinine Calcium POC WB Ioniz Calcium Phosphorus Total Bilirubin Direct Bilirubin AST Ammonia Lactate Dehydrogenase Total Protein Albumin TSH Free T4 < 0.10 L Thyroxine (T4) Free T3 pg/mL 0.4 L Urine Urobilinogen 2.0 A 03/18/17 03/18/17 03/18/17 08:19 08:19 08:19 WBC RBC Hgb Hct MCV MCH Gran % Lymph % (Auto) Lymph # (Auto) POC PT VBG Lactic Acid 2.3 H POC Sodium Sodium Potassium Chloride Carbon Dioxide POC BUN BUN Creatinine POC Creatinine Calcium POC WB Ioniz Calcium Phosphorus Total Bilirubin Direct Bilirubin AST Ammonia 10 L Lactate Dehydrogenase Total Protein Albumin TSH 87.56 H Free T4 Thyroxine (T4) Free T3 pg/mL Urine Urobilinogen 03/18/17 03/18/17 03/18/17 08:19 08:19 08:19 WBC RBC 3.55 L Hgb Hct MCV 102.0 H MCH 35.4 H Gran % Lymph % (Auto) Lymph # (Auto) 1.2 L POC PT 14.7 H VBG Lactic Acid POC Sodium 130 L Sodium 129 L Potassium Chloride 93 L Carbon Dioxide POC BUN 27 H BUN 28 H Creatinine 1.3 H POC Creatinine 1.2 H Calcium 8.0 L POC WB Ioniz Calcium 1.06 L Phosphorus Total Bilirubin Direct Bilirubin AST Ammonia Lactate Dehydrogenase Total Protein 5.6 L Albumin 3.0 L TSH Free T4 Thyroxine (T4) Free T3 pg/mL Urine Urobilinogen Meds: Medications Acetaminophen (Tylenol) 650 mg PO Q6HP PRN PRN Reason: PAIN/FEVER > 101 Albuterol/Ipratropium (Duoneb) 3 ml NEB Q4HRT [facility] Last Admin: 03/20/17 08:32 Dose: 3 ml Aspirin (Aspirin) 81 mg PO DAILY [facility] Last Admin: 03/19/17 10:23 Dose: 81 mg Azithromycin (Zithromax) 250 mg PO DAILY [facility] Stop: 03/24/17 09:01 Heparin Sodium (Porcine) (Heparin) 5,000 unit SQ Q12 [facility] Last Admin: 03/19/17 21:44 Dose: 5,000 unit Potassium Chloride 40 meq/ (Dextrose) 520 mls @ 130 mls/hr IV ONCE ONE Stop: 03/20/17 12:59 Magnesium Sulfate 32.48 meq/ (Dextrose) 108 mls @ 54 mls/hr IV ONCE ONE Stop: 03/20/17 10:27 Levothyroxine Sodium (Synthroid) 50 mcg PO QAMAC [facility] Liothyronine Sodium (Cytomel) 5 mcg PO DAILY [facility] Last Admin: 03/19/17 12:18 Dose: 5 mcg Morphine Sulfate (Morphine) 2 mg IV Q4HP PRN PRN Reason: Pain Naloxone HCl (Narcan) 0.1 mg IV Q2MIN PRN PRN Reason: Opiate Reversal Ondansetron HCl (Zofran) 4 mg IV Q6HP PRN PRN Reason: Nausea And Vomiting Pantoprazole Sodium (Protonix) 40 mg IV QAMAC [facility] Last Admin: 03/20/17 07:51 Dose: 40 mg Potassium/Phosphorus/Sodium (Neutra Phos) 1 packet PO BID [facility] Prednisone (Prednisone) 40 mg PO [facility] Stop: 03/26/17 07:59 Sodium Chloride (Saline Flush) 10 ml IV Q8 [facility] Last Admin: 03/20/17 06:07 Dose: Not Given Medical - PN: A/P - Time Spent With Patient Total time spent is greater than 50% in coordination of care (as documented) at patient's floor/unit and/or counseling patient: - Narrative A/P Narrative: A/P Moderate to Severe dementia: CT head shows cerebral atrophy, not on any meds at this time, patient if does not recover from thyroid issues should be considered for palliative care, agrees with same. Acute copd exacerbation: Po steroids, duonebs, and zithromax added, monitor . Hypothyroidism, severe- High tsh due to non compliance. given pericardial effusion, as well as ascitis and significant worsening of dementia, I am treating this aggressively. Change IV to po synthroid, continue t3 supplementation. Monitor for response. Failure to thrive: Poor oral intake, poor activity level, likely from low thyroid, but worsening dementia is possible. If patient does not improve with treatment with fluids and correcting thyroid issues, palliative care should be considered. ST opal appreciated, diet resumed, will see if her condition improves with improvement in thyroid function. Pericardial effusion: likely due to hypothyroidism, get echo Hyponatremia: Due to poor oral intake, hypothyroid state, chr low as per PCP, patient Na is better today, monitor Acute kidney injury: resolved. DVThep sq dysphagia diet. DNR status. OT/PT eval Medical - PN: Qual - Stroke Symptom Onset Unknown: No - VTE Deep Vein Thrombosis/Pulmonary Embolism Present on Admission: No
[2017-03-20] MEDS: ASPIRIN 81 MG TAB.CHEW PO SCH (10:21)
[2017-03-20] MEDS: LIOTHYRONINE 5 MCG TABLET PO SCH (10:21)
[2017-03-20] MEDS: NEUTRA PHOS 1 PACKET PO SCH ×2 (10:22→22:56)
[2017-03-20] MEDS: HEPARIN 5,000 UNIT/ML VIAL SQ SCH ×2 (10:24→21:45)
[2017-03-20] MEDS ORDERED: methylPREDNISolone SOD SUCC 125 MG/2 ML VIAL IV ONE (22:18)
[2017-03-20] MEDS ORDERED: methylPREDNISolone SOD SUCC 125 MG/2 ML VIAL ONE (22:30)
[2017-03-21] MEDS: IPRATROPIUM/ALBUTEROL 3 ML AMPUL.NEB NEB SCH ×4 (05:25→19:08)
[2017-03-21 05:43] LABS: Basophils # (Auto) 0 K/mcL (0.0-0.3); Basophils % (Auto) 0 % (0.0-2.0); Eosinophils # (Auto) 0 K/mcL (0.0-0.7); Eosinophils % (Auto) 0.4 % (0.0-7.0); Granulocytes % (Auto) 87.9 % (38.0-78.0); Lymphocytes # (Auto) 0.5 K/mcL (1.5-4.8); Lymphocytes % (Auto) 9.9 % (15.5-49.0); Mean Cell Volume 103.6 fL (80.0-100.0); Mean Corpuscular HGB Conc 34.3 g/dL (31.0-36.0); Mean Corpuscular Hemoglobin 35.6 pg (26.0-34.0); Monocytes # (Auto) 0.1 K/mcL (0.1-0.9); Monocytes % (Auto) 1.8 % (1.0-12.0); Platelet Count 206 K/mcL (140-440); RBC 3.48 M/mcL (4.00-5.20); Red Cell Distribution Width 13.6 % (11.5-14.5)
[2017-03-21] MEDS: 0.9 % SODIUM CHLORIDE 10 ML SYRINGE IV SCH ×3 (06:02→20:37)
[2017-03-21 06:39] LABS: T4 (Thyroxine) 4.5 ug/dl (5.0-12.0)
[2017-03-21 06:52] LABS: ALT/SGPT 25 U/l (0-40); Albumin 3.6 gm/dL (3.2-5.2); Albumin/Globulin Ratio 1.3 (1.0-2.3); Alkaline Phosphatase 53 U/L (39-117); Bilirubin,Direct 0.3 mg/dL (0.0-0.3); Blood Urea Nitrogen 14 mg/dl (8-23); Gamma Glutamyl Transpeptidase 20 U/L (5-36); Magnesium 2.3 mg/dL (1.6-2.5)
[2017-03-21] MEDS: predniSONE 20 MG TABLET PO SCH (07:22)
[2017-03-21] MEDS: LEVOTHYROXINE 50 MCG TABLET PO SCH ×2 (07:22→09:40)
[2017-03-21] MEDS: NEUTRA PHOS 1 PACKET PO SCH (07:23)
[2017-03-21] MEDS: LIOTHYRONINE 5 MCG TABLET PO SCH (07:23)
[2017-03-21] MEDS: ASPIRIN 81 MG TAB.CHEW PO SCH (07:23)
[2017-03-21] MEDS: PANTOPRAZOLE 40 MG VIAL IV SCH (07:36)
--- NOTE | 2017-03-21 08:45 | XRay Report ---
INDICATION: Hypoxia. Possible aspiration pneumonia. TECHNIQUE: AP chest x-ray,semiupright portable COMPARISON: 03/18/2017, 10/21/2012, 08/22/2008 FINDINGS:Old healed left-sided rib fractures. Lungs are negative. No parenchymal infiltrate or mass. Heart size and vascularity are normal. No pulmonary edema or pulmonary congestion. Joann and mediastinum are negative. No pleural fluid. There is a round mass in the lower chest consistent with hiatal hernia IMPRESSION: 1. No acute abnormality. 2. No interval change since 03/18/2017 Interpreted and Authenticated by: Aamir Hood 03/21/17
[2017-03-21] MEDS ORDERED: AZITHROMYCIN 250 MG TABLET PO SCH (09:00)
[2017-03-21] MEDS: HEPARIN 5,000 UNIT/ML VIAL SQ SCH (09:33)
--- NOTE | 2017-03-21 18:18 | Internal Med Progress Note ---
Medical - PN: Subj Patient information: Note initiated : 03/21/17 at 6:16 pm Service Date, if different from initiated Date: [] Patient: Genny Wright 76 y/o F admitted on 03/18/17 for Global Weakness/ Hyponatremia, Dementia. Chief Complaint: [] Interval history: Ms. Wright is a 76 year old Female with severe dementia, not on any dementia meds presents to the ER today brought in by her because she is too weak and has had poor oral intake. The patient has h/o hypothyroidism, she stopped taking her medication approximately 1 month ago, she does have a history of non compliance in the past , and her TSH has been all over the place. She lives with her who takes care of her. He notes she sometimes is stubborn and difficult to convince to take pills. The patient over the last 1 week has been progressively weak, tired and fatigued, not getting out of bed. She has had decline in her po intake, last meal was last sunday. She was therefore brought in the hospital for further evaluation. She denies any complaints in the ER. Her notes no other symptoms apparent except as listed above. She does have intermittent headaches, intermittent appetitie as per her but could not elaborate much. AT baseline she is able feed self, go for walks and seems to be reasonably independent, and relies on for memory issues. The patient in ther ER did not have any signs of infectino, her TSH Was high, her CT Head showed cerebral atrophy, CT Abdomen had possible enteritis, noted pericardial effusion and some ascites. The patient was admitted to the hospital for further management. The patient is DNR and does not want any artificial life supporting treatment. Mar 19 Patient seen examined no acute overnight issues tsh is better, t4 better on iv t4 for now we do have t3, but not IV, will start with oral t3 5mcg today and monitor response pt denies any complaints but clearly has no clue, she noted that she had breakfast this AM, when we have her NPO. Patients does not believe this is her baseline mental status. labs show improvement in sodium. Mar 20 patient seen examined, no acute overnight issues still very confused denies complaints labs show high tsh, and low t3 and t4, on replacement for both. Patient this AM was very sob on minimal activity, noted to be wheezing on exam started on steroids, duonebs and zithromax for copd, h/o smoking present. March 21 Notified by nursing last night the patient may have aspirated and has acute dyspnea. She was fighting her oxygen and was desaturating to the low 80s on room air. Given IV Solu-Medrol overnight after being made nothing by mouth. She had improvement with her breathing today. I discussed goals of care with her , Wilner and her daughter, Alba, and they both state that she would never want to live like this. They are requesting hospice consultation and transition to comfort measures only with plan to discharge tomorrow. - Constitutional Vitals: Vital Signs Temp Pulse Resp BP Pulse Ox 97.6 F 92 H 20 102/64 88 L 03/21/17 15:39 03/21/17 15:39 03/21/17 15:39 03/21/17 15:39 03/21/17 15:39 Period Temp Pulse Resp BP Sys/Jacome Pulse Ox Last 24 Hr 96.8 F-99.3 F 80-92 18-28 100-121/60-71 77-96 Intake and Output 03/21/17 03/21/17 03/21/17 05:59 13:59 21:59 Intake Total 0 / 0 Output Total 2 / 2 Balance 0 / 0 -2 / -2 General: NAD; conversational, but says a few words and then breaks off. CV: Regular rate and rhythm. No murmurs rubs or gallops. Respiratory: No acute respiratory distress. Wheezes throughout. Abdomen: Soft, nondistended, nontender. Positive bowel tones. Neuro: Alert and oriented 1. Intake & Output: Intake & Output 03/21/17 03/21/17 03/21/17 05:59 13:59 21:59 Intake Total 0 / 0 Output Total 2 / 2 Balance 0 / 0 -2 / -2 Intake: Oral 0 / 0 Output: # of times incontinent of urine 2 / 2 Other: # Voids 1 Medical - PN: Obj Da - Labs CBC & Chem 7: 03/21/17 03:44 03/21/17 03:44 Labs: Abnormal Lab Results 03/21/17 03/21/17 03/21/17 03:44 03:44 03:44 WBC RBC Hgb Hct MCV MCH Gran % Lymph % (Auto) Lymph # (Auto) Sodium 131 L Potassium Chloride 94 L Carbon Dioxide 21 L Glucose 160 H Calcium 8.5 L Phosphorus Total Bilirubin Direct Bilirubin AST Lactate Dehydrogenase 283 H TSH 28.02 H Thyroxine (T4) 4.5 L Free T3 pg/mL 1.2 L 03/21/17 03/20/17 03/20/17 03:44 04:35 04:35 WBC RBC 3.48 L Hgb Hct MCV 103.6 H MCH 35.6 H Gran % 87.9 H Lymph % (Auto) 9.9 L Lymph # (Auto) 0.5 L Sodium Potassium Chloride Carbon Dioxide Glucose Calcium Phosphorus Total Bilirubin Direct Bilirubin AST Lactate Dehydrogenase TSH 52.21 H Thyroxine (T4) 3.8 L Free T3 pg/mL 0.9 L 03/20/17 03/20/17 03/19/17 04:35 04:35 04:11 WBC 4.2 L RBC 3.31 L Hgb 11.6 L Hct 33.8 L MCV 102.4 H MCH 35.0 H Gran % Lymph % (Auto) Lymph # (Auto) 1.3 L Sodium Potassium Chloride Carbon Dioxide Glucose Calcium 8.2 L Phosphorus 1.3 L Total Bilirubin 1.1 H Direct Bilirubin 0.4 H AST 38 H Lactate Dehydrogenase 285 H TSH 33.45 H Thyroxine (T4) 4.9 L Free T3 pg/mL 03/19/17 03/19/17 04:11 04:11 WBC RBC 3.40 L Hgb 11.9 L Hct 34.7 L MCV 102.3 H MCH 35.2 H Gran % 81.1 H Lymph % (Auto) 13.3 L Lymph # (Auto) 0.7 L Sodium Potassium 3.2 L Chloride Carbon Dioxide 21 L Glucose Calcium 7.8 L Phosphorus 2.6 L Total Bilirubin Direct Bilirubin 0.4 H AST 40 H Lactate Dehydrogenase 254 H TSH Thyroxine (T4) Free T3 pg/mL Meds: Medications Acetaminophen (Tylenol) 650 mg PO Q6HP PRN PRN Reason: PAIN/FEVER > 101 Albuterol/Ipratropium (Duoneb) 3 ml NEB Q6HRT [facility] Last Admin: 03/21/17 13:19 Dose: 3 ml Aspirin (Aspirin) 81 mg PO DAILY [facility] Last Admin: 03/21/17 07:23 Dose: Not Given Azithromycin (Zithromax) 250 mg PO DAILY [facility] Stop: 03/24/17 09:01 Last Admin: 03/21/17 07:23 Dose: Not Given Heparin Sodium (Porcine) (Heparin) 5,000 unit SQ Q12 [facility] Last Admin: 03/21/17 09:33 Dose: 5,000 unit Levothyroxine Sodium ([facility]throid) [facility] Last Admin: 03/21/17 09:40 Dose: 50 mcg Liothyronine Sodium (Cytomel) 5 mcg PO DAILY [facility] Last Admin: 03/21/17 07:23 Dose: Not Given Morphine Sulfate (Morphine) 2 mg IV Q4HP PRN PRN Reason: Pain Last Admin: 03/20/17 22:30 Dose: 2 mg Naloxone HCl (Narcan) 0.1 mg IV Q2MIN PRN PRN Reason: Opiate Reversal Ondansetron HCl (Zofran) 4 mg IV Q6HP PRN PRN Reason: Nausea And Vomiting Pantoprazole Sodium (Protonix) [facility] Last Admin: 03/21/17 07:36 Dose: 40 mg Potassium/Phosphorus/Sodium (Neutra Phos) 1 packet PO BID [facility] Last Admin: 03/21/17 07:23 Dose: Not Given Prednisone (Prednisone) 40 mg PO [facility] Stop: 03/26/17 07:59 Last Admin: 03/21/17 07:22 Dose: Not Given Sodium Chloride (Saline Flush) 10 ml IV Q8 [facility] Last Admin: 03/21/17 14:42 Dose: 10 ml Medical - PN: A/P - Time Spent With Patient Total time spent is greater than 50% in coordination of care (as documented) at patient's floor/unit and/or counseling patient: Greater than 35 minutes - Narrative A/P Narrative: A/P Moderate to Severe dementia: CT head shows cerebral atrophy, not on any meds at this time, patient if does not recover from thyroid issues should be considered for palliative care, agrees with same. Acute copd exacerbation, likely 2/2 aspiration: Po steroids, duonebs, and zithromax added, monitor . Dysphagia--acute on chronic. Long standing history needing esophageal dilatation in the past. Regular diet as now [employer]. Hypothyroidism, severe- High tsh due to non compliance. given pericardial effusion, as well as ascitis and significant worsening of dementia, I am treating this aggressively. Changed IV to po synthroid, continue t3 supplementation. Monitor for response. Failure to thrive: Hospice consulted per family request. Plan to DC home with hospice tomorrow. Discussed at length with family today. Pericardial effusion: likely due to hypothyroidism, f/u echo Hyponatremia: Due to poor oral intake, hypothyroid state, chr low as per PCP, improving Acute kidney injury: resolved. DVThep sq. DC as comfort measures regular diet. DNR status; comfort measures only. Dispo: home with hospice tomorrow Medical - PN: Qual - Stroke Symptom Onset Unknown: No - VTE Deep Vein Thrombosis/Pulmonary Embolism Present on Admission: No
[2017-03-22] MEDS: IPRATROPIUM/ALBUTEROL 3 ML AMPUL.NEB NEB SCH ×2 (01:44→07:00)
[2017-03-22] MEDS: 0.9 % SODIUM CHLORIDE 10 ML SYRINGE IV SCH ×2 (01:46→06:08)
--- NOTE | 2017-03-22 07:16 | Discharge Summary ---
Medical - DS: Prov Patient information: Note initiated : 03/22/17 at 7:05 am Service Date, if different from initiated Date: [] Patient: Genny Wright 76 y/o F admitted on 03/18/17 for Global Weakness/ Hyponatremia, Dementia. Chief Complaint: [] Date of admission: 03/18/17 15:00 Discharge date: 03/22/17 Primary care physician: Claudy Mcgrath Attending physician on admission: Erin Lucas Consults: 1 Attending physician on discharge: Barbara Turk Medical - DS: Meds - Discharge Medications Prescriptions: Bisacodyl [Dulcolax] 10 mg PA DAILYP PRN #14 supp.rect PRN Reason: Constipation morphine 5 - 20 mg SL Q2HP PRN #120 ml PRN Reason: pain or shortness of breath Active and Home Medications: Home Medications aspirin 81 mg tablet,delayed release 81 mg PO QDAY tab 11/05/14 [History Confirmed 07/11/16 Last Taken Unknown] albuterol sulfate HFA 90 mcg/actuation aerosol inhaler 180 mcg INHALATION TID # 8.5 g 02/02/15 [Rx Confirmed 07/11/16 Last Taken Unknown] levothyroxine 50 mcg tablet 50 mcg PO QDAY #90 tab 01/02/17 [Rx Last Taken Unknown] Medical - DS: Hosp Hospital course: This is a 76-year-old female with a history of severe Alzheimer's dementia admitted with generalized weakness found to have severe, untreated hypothyroidism with ascites and pericardial effusion. She also had associated hyponatremia and acute kidney injury. She was treated with IV levothyroxine and treated with T3 supplementation with only mild to moderate improvement in her symptoms. She has a long history of aspiration, needing esophageal dilatation in the past. Her reports that at home she has been spitting out her pills. This may be related to difficulty swallowing in the setting of her severe dementia and explains her severe hypothyroidism. She was on a dysphagia diet by speech therapy and had acute worsening of shortness of breath attributed to COPD exacerbation secondary to aspiration. Goals of care were discussed with her , Wilner, and daughter, Alba, and she is transitioned to hospice per their request. She is discharged with her home levothyroxine (if she will take it) and albuterol and morphine for air hunger and Bisacodyl. Hospice plans to see them at home later today. Discharge diagnosis: Generalized weakness secondary to severe hypothyroidism Secondary discharge diagnosis: Pericardial effusion secondary to hypothyroidism Acute hypoxic respiratory failure secondary to COPD exacerbation from aspiration Acute on chronic dysphagia Hyponatremia Acute kidney injury Severe Alzheimer's dementia - Time Spent with Patient Total time spent providing and/or coordinating discharge services: Greater than 30 minutes Medical - DS: Exam - Constitutional Vitals: Vital Signs Temp Pulse Pulse Pulse Pulse Resp BP 03/22/17 05:00 97.0 F 80 20 112/67 03/21/17 23:52 97.1 F 80 20 127/70 03/21/17 20:00 96.8 F L 72 16 95/62 03/21/17 19:12 68 20 03/21/17 15:39 97.6 F 92 H 20 102/64 03/21/17 13:21 82 20 03/21/17 11:41 85 20 100/60 03/21/17 09:44 03/21/17 07:51 90 90 90 03/21/17 07:48 97.8 F 90 20 105/61 03/21/17 07:42 86 20 Pulse Ox 03/22/17 05:00 86 L 03/21/17 23:52 89 L 03/21/17 20:00 97 03/21/17 19:12 92 03/21/17 15:39 88 L 03/21/17 13:21 03/21/17 11:41 91 03/21/17 09:44 94 03/21/17 07:51 91 03/21/17 07:48 91 03/21/17 07:42 Intake and Output 03/21/17 03/22/17 03/22/17 21:59 05:59 13:59 Intake Total 0 / 0 Output Total Balance 0 / 0 -1 / -1 Intake: Oral 0 / 0 Output: # of times incontinent of urine Other: Weight 104 lb 8 oz Additional comments: General: NAD; conversational, but says a few words and then breaks off. CV: Regular rate and rhythm. No murmurs rubs or gallops. Respiratory: No acute respiratory distress. Wheezes throughout. Abdomen: Soft, nondistended, nontender. Positive bowel tones. Neuro: Alert and oriented 1. Medical - DS: Data Procedures and tests throughout hospitalization: 03/[address] shows severe atrophy progressive since 2013. No new focal abnormality. 03/18 CT abdomen and pelvis shows small to moderate ascites without any adenopathy or new mass and a somewhat prominent fluid-filled small bowel not consistent with acute small bowel obstruction. There is pericardial effusion. Labs on day of discharge: Preliminary micro results at discharge 03/18/17 08:19 Blood Culture - Preliminary Blood 03/18/17 08:35 Blood Culture - Preliminary Blood Medical - DS: A/P - Patient/Caregiver Discharge Instructions Activity: increase activity as tolerated Diet: Regular Diet - Follow up Plan Follow up with: Claudy Mcgrath MD [Primary Care Provider] - Disposition: Hospice - Home Prognosis: Serious Rehab Potential: Serious I certify that the patient requires SNF services: No Overall status at discharge: patient is not back to baseline Medical - DS: Qual - VTE Deep Vein Thrombosis/Pulmonary Embolism Present on Admission: No
[2017-03-22] MEDS: ASPIRIN 81 MG TAB.CHEW PO SCH (08:10)
[2017-03-22] MEDS: predniSONE 20 MG TABLET PO SCH (08:21)
[2017-03-22] MEDS: PANTOPRAZOLE 40 MG VIAL IV SCH (08:22)
[2017-03-22] MEDS: LEVOTHYROXINE 50 MCG TABLET PO SCH (08:22)
[2017-03-22] MEDS: LIOTHYRONINE 5 MCG TABLET PO SCH (10:10)
== END 2017-03-22 09:45 | disposition hospice, home (50) | DRG 643 ==
LOC: ED 07:50 → MEDSUR 15:00
PROVIDERS: ADMIT Internal Medicine; ATTEND Internal Medicine